=== PATIENT | female | born 1980 | race Two or more races ===

== ENCOUNTER 2018-10-05 13:01 | Inpatient (IN) | payer OTHER ==
[~2018-10-05] VITALS: Ht 157.5 cm; Wt 69.4 kg
[~2018-10-05 13:01] MED LIST: CODE1TAB37 PO; DOCUSATE SODIU100 MG PO; IRON1 TAB PO; NAPR500T14 PO
[2018-10-05] MEDS ORDERED: ZOLOFT25 MG PO (13:39)
[2018-10-10] MEDS ORDERED: CODE1TAB37 PO (11:54)
[2018-10-10] MEDS ORDERED: NAPR500T14 PO (11:55)
== END 2018-10-10 13:13 | disposition home or self-care (01) | DRG 785 ==
LOC: O/R 10-07 09:24 → OB/GYN 10-07 13:00
PROVIDERS: ADMIT Obstetrics & Gynecology
PROC: 0UL70ZZ Occlusion of Bilateral Fallopian Tubes, Open Approach (ICD-10-PCS; 2018-10-07)
PROC: 4A1HXCZ Monitoring of Products of Conception, Cardiac Rate, External Approach (ICD-10-PCS; 2018-10-07)
PROC: 10D00Z1 Extraction of Products of Conception, Low, Open Approach (ICD-10-PCS; principal; 2018-10-07 19:15)
DX: O82 Encounter for cesarean delivery without indication (principal); Z3A.38 38 weeks gestation of pregnancy; Z37.0 Single live birth; Z30.2 Encounter for sterilization; O90.81 Anemia of the puerperium